=== PATIENT | female | born 1930 | race Caucasian/White ===

== ENCOUNTER 2016-08-09 15:07 | Emergency (ER) | payer MEDICARE, OTHER ==
[2016-08-09 15:41] LABS: BILIRUBIN NEGATIVE (NEGATIVE); BLOOD NEGATIVE Ery/uL (NEGATIVE); CLARITY CLEAR (CLEAR); COLOR YELLOW (YELLOW); GLUCOSE (U) NORMAL (NORMAL); KETONE (U) NEGATIVE (NEGATIVE); LEUKOCYTES NEGATIVE Leu/uL (NEGATIVE); NITRITE NEGATIVE (NEGATIVE); PROTEIN NEGATIVE (NEGATIVE); SPECIFIC GRAVITY 1.015 (1.001-1.030); UROBILINOGEN 0.2 mg/dL (0.2-1.0)
[2016-08-09 15:41] LABS: ALBUMIN 3.1 g/dL (3.4-4.8); BILIRUBIN - TOTAL 0.4 mg/dL (0.1-1.0); CREATININE 0.7 mg/dL (0.5-1.0); GLOBULIN (CALCULATION) 3.1 g/dL (2.2-4.2); POTASSIUM 4.3 mmol/L (3.5-5.1); TOTAL PROTEIN 6.2 g/dL (6.4-8.3)
[2016-08-09 15:43] LABS: BASOPHIL 0.1 % (0-2); EOSINOPHIL 0.4 % (0-7); HCT 28.6 % (37.0-47.0); HGB 9.8 g/dl (12.5-16.0); LYMPHOCYTE 9.6 % (15-48); MCH 32.1 pg (25.0-31.0); MCHC 34.3 g/dL (32.0-36.0); MCV 93.8 fL (78.0-100.0); MONOCYTE 9.1 % (0-12); MPV 8.7 fL (6.0-9.5); NEUTROPHIL 80.8 % (41-80); PLT 654 K/uL (150-400); RBC 3.05 M/uL (4.20-5.40); RDW 14.3 % (11.5-14.0)
[2016-08-09 15:44] LABS: WBC 18.6 K/uL (4.0-10.5)
== END 2016-08-09 21:01 | disposition other institution (70) ==
LOC: FER 15:07
PROVIDERS: Emergency Medicine
DX: K56.2 Volvulus (principal); K56.69 Other intestinal obstruction; Z88.0 Allergy status to penicillin; Z88.5 Allergy status to narcotic agent; Z91.041 Radiographic dye allergy status; Z79.899 Other long term (current) drug therapy
CPT/HCPCS: 36415; 74020; 80053; 81003; 83605; 83690; 85025; J1956